=== PATIENT | male | born 1950 | race Caucasian/White ===

== ENCOUNTER 2017-09-09 10:19 | Inpatient (IN) | payer OTHER ==
[~2017-09-09] VITALS: Ht 185.4 cm; Wt 93.0 kg
[2017-09-09 11:27] LABS: BASOPHIL (%) 0.3 % (0-1); EOSINOPHIL (%) 2.4 % (0-5); EOSINOPHIL COUNT 0.3 K/uL (0-0.3); HEMOGLOBIN 12.9 G/DL (12.5-16.6); IMMATURE GRANULOCYTE (%) 0.5 % (0.0-0.7); LYMPHOCYTE COUNT 0.6 K/uL (1.0-2.8); MCH 29.9 PG (29.0-34.0); MCHC 33.9 G/DL (30.0-36.0); MCV 88.2 FL (86-99); MONOCYTE (%) 9.3 % (3-12); NEUTROPHIL (%) 81.5 % (45-76); NEUTROPHIL COUNT 8.7 K/uL (1.8-6.4); PLATELET COUNT 213 K/uL (156-360); RBC DIS.WIDTH-CV 13.8 % (11.8-14.6); RBC DIS.WIDTH-SD 44.5 % (39-53); RED BLOOD COUNT 4.31 M/uL (4.00-5.50); WHITE BLOOD COUNT 10.7 K/uL (4.1-10.2)
[2017-09-09 11:29] LABS: CHLORIDE 104 mEq/L (99-109); POTASSIUM 3.9 mEq/L (3.7-5.4); SODIUM 137 mEq/L (136-147)
[2017-09-09 11:31] LABS: GLUCOSE 84 mg/dL (70-99)
[2017-09-09 11:33] LABS: INTER. NORMALIZED RATIO 1.2
[2017-09-09 11:34] LABS: GFR ESTIMATE (CALCULATED) > 59 mL/min/ (58.99-99999)
[2017-09-09 11:35] LABS: UREA NITROGEN (BUN) 16 mg/dL (9-23)
[2017-09-09] MEDS ORDERED: SUCRALFATE1 GM PO (12:49)
[2017-09-09] MEDS ORDERED: LEVOTHYROXINE125 MCG PO (12:50)
[2017-09-09] MEDS ORDERED: MELOXICAM15 MG PO (12:50)
[2017-09-09] MEDS ORDERED: ESOMEPRAZOLE MA40 MG PO (12:50)
[2017-09-09] MEDS ORDERED: FLOMAX0.4 MG PO (12:51)
[2017-09-09] MEDS ORDERED: ROSUVASTATIN CAL5 MG PO (12:51)
[2017-09-09] MEDS ORDERED: COMBIVENT RESPIM4 GM IH (12:51)
[2017-09-09] MEDS ORDERED: METOPROLOL TART25 MG PO (12:52)
[2017-09-09] MEDS ORDERED: ALLEGRA ALLERG180 MG PO (12:52)
[2017-09-09] MEDS ORDERED: NATURAL BALANCE15 M1 BOTH EYES (12:52)
[2017-09-09] MEDS ORDERED: LO-DOSE ASPIRIN81 M2 PO (12:52)
[2017-09-09] MEDS ORDERED: DUONEB 2.5-0.5 M3 ML AEROSOL (12:56)
[2017-09-09 15:42] LABS: APPEARANCE CLEAR ((CLEAR)); BILIRUBIN NEGATIVE; BLOOD SMALL; COLOR YELLOW ((YELLOW)); GLUCOSE (STRIP) NEGATIVE; KETONES 5; LEUKOCYTES NEGATIVE; NITRITE NEGATIVE; PROTEIN (STRIP) NEGATIVE; SPECIFIC GRAVITY 1.015 (1.000-1.030); UROBILINOGEN 0.2 MG/DL (0.2-1.0)
[2017-09-09 15:56] LABS: BACTERIA NONE SEEN /HPF; EPITHELIAL CELLS NONE SEEN /HPF; MUCUS TRACE /LPF; UCUL ADDED? NO; WHITE BLOOD CELLS 0-5 /HPF (0-5)
[2017-09-09 20:26] VITALS: BP 110/76
[2017-09-10] VITALS (7 sets, daily range): BP systolic 103–137; BP diastolic 63–83
[2017-09-10 06:00] LABS: MCH 29.5 PG (29.0-34.0); MCHC 33.3 G/DL (30.0-36.0); MCV 88.6 FL (86-99); PLATELET COUNT 221 K/uL (156-360); RBC DIS.WIDTH-CV 14.1 % (11.8-14.6); RBC DIS.WIDTH-SD 45.6 % (39-53); WHITE BLOOD COUNT 16.1 K/uL (4.1-10.2)
[2017-09-10 06:07] LABS: INTER. NORMALIZED RATIO 1.3
[2017-09-10 06:25] LABS: ALBUMIN 3.1 G/DL (3.2-4.8); ALKALINE PHOSPHATASE 98 IU/L (3-129); ALT (GPT) 10 IU/L (3-49); AST (GOT) 10 IU/L (2-34); CHLORIDE 101 MEQ/L (99-109); CREATININE 0.9 MG/DL (0.6-1.3); GFR ESTIMATE (CALCULATED) > 59 mL/min/ (58.99-99999); GLUCOSE 125 mg/dL (70-99); POTASSIUM 4.4 MEQ/L (3.7-5.4); SODIUM 137 MEQ/L (136-147); TOTAL BILIRUBIN 0.3 MG/DL (0.0-1.0); TOTAL PROTEIN 6.2 G/DL (6.4-8.3); UREA NITROGEN (BUN) 21 mg/dL (9-23)
[2017-09-10 19:28] LABS: HEMATOCRIT 35.4 % (38.0-50.0); HEMOGLOBIN 11.7 G/DL (12.5-16.6); MCH 29.8 PG (29.0-34.0); MCHC 33.1 G/DL (30.0-36.0); MCV 90.3 FL (86-99); PLATELET COUNT 181 K/uL (156-360); RBC DIS.WIDTH-CV 14.3 % (11.8-14.6); RED BLOOD COUNT 3.92 M/uL (4.00-5.50); WHITE BLOOD COUNT 17.8 K/uL (4.1-10.2)
[2017-09-10 23:16] LABS: COMMENTS - BLOOD GASES C+A+; DEVICE CAM; FI02 75 %; O2 FLOW 15 L/MIN; SITE LR; TOTAL RESP RATE 20 resp/min
[2017-09-10 23:17] LABS: BASE EXCESS 1.3 mEq/L (-3 to +3); BICARBONATE 25.9 mEq/L (22-26); METHEMOGLOBIN 1.3 % (0-1.5); O2 SATURATION (CALCULATED) 95.2 % (95-99); PCO2 40 mm Hg (35-45); PO2 60 mm Hg (80-100); pH 7.42 (7.35-7.45)
[2017-09-10 23:52] LABS: BASOPHIL (%) 0.2 % (0-1); EOSINOPHIL (%) 0.4 % (0-5); EOSINOPHIL COUNT 0.1 K/uL (0-0.3); HEMATOCRIT 36.6 % (38.0-50.0); HEMOGLOBIN 12.2 G/DL (12.5-16.6); IMMATURE GRANULOCYTE (%) 0.6 % (0.0-0.7); LYMPHOCYTE (%) 3.9 % (15-42); LYMPHOCYTE COUNT 0.8 K/uL (1.0-2.8); MCH 29.5 PG (29.0-34.0); MCHC 33.3 G/DL (30.0-36.0); MCV 88.4 FL (86-99); MONOCYTE (%) 7.6 % (3-12); MONOCYTE COUNT 1.6 K/uL (0-0.8); NEUTROPHIL (%) 87.3 % (45-76); NEUTROPHIL COUNT 17.9 K/uL (1.8-6.4); PLATELET COUNT 202 K/uL (156-360); RBC DIS.WIDTH-CV 14.1 % (11.8-14.6); RBC DIS.WIDTH-SD 45.3 % (39-53); RED BLOOD COUNT 4.14 M/uL (4.00-5.50); WHITE BLOOD COUNT 20.5 K/uL (4.1-10.2)
[2017-09-11] VITALS (7 sets, daily range): BP systolic 90–176; BP diastolic 52–107
[2017-09-11 00:08] LABS: ALBUMIN 3.2 g/dL (3.2-4.8); CHLORIDE 104 mEq/L (99-109); POTASSIUM 4.5 mEq/L (3.7-5.4); SODIUM 138 mEq/L (136-147)
[2017-09-11 00:10] LABS: GLUCOSE 121 mg/dL (70-99)
[2017-09-11 00:11] LABS: TOTAL PROTEIN 6.3 g/dL (6.4-8.3)
[2017-09-11 00:13] LABS: TOTAL BILIRUBIN 0.5 mg/dL (0.0-1.0)
[2017-09-11 00:14] LABS: ALKALINE PHOSPHATASE 85 IU/L (3-129); GFR ESTIMATE (CALCULATED) > 59 mL/min/ (58.99-99999)
[2017-09-11 00:15] LABS: UREA NITROGEN (BUN) 20 mg/dL (9-23)
[2017-09-11 00:16] LABS: AST (GOT) 14 IU/L (2-34)
[2017-09-11 00:17] LABS: ALT (GPT) 15 IU/L (3-49)
[2017-09-11 00:26] LABS: TROP-I INTERPRETATION NEGATIVE; TROPONIN-I < 0.01 ng/mL (0.0-0.30)
[2017-09-11 06:09] LABS: HEMATOCRIT 35.3 % (38.0-50.0); HEMOGLOBIN 11.6 G/DL (12.5-16.6); MCH 29.4 PG (29.0-34.0); MCHC 32.9 G/DL (30.0-36.0); MCV 89.6 FL (86-99); PLATELET COUNT 161 K/uL (156-360); RBC DIS.WIDTH-CV 14.1 % (11.8-14.6); RBC DIS.WIDTH-SD 45.9 % (39-53); RED BLOOD COUNT 3.94 M/uL (4.00-5.50); WHITE BLOOD COUNT 16.3 K/uL (4.1-10.2)
[2017-09-11 06:26] LABS: TROP-I INTERPRETATION NEGATIVE; TROPONIN-I 0.02 ng/mL (0.0-0.30)
[2017-09-11 06:40] LABS: CHLORIDE 105 MEQ/L (99-109); CREATININE 0.8 MG/DL (0.6-1.3); GFR ESTIMATE (CALCULATED) > 59 mL/min/ (58.99-99999); GLUCOSE 125 mg/dL (70-99); MAGNESIUM 1.5 mg/dl (1.3-2.7); POTASSIUM 4.2 MEQ/L (3.7-5.4); SODIUM 137 MEQ/L (136-147); UREA NITROGEN (BUN) 18 mg/dL (9-23)
[2017-09-11 09:33] LABS: DEVICE HFNC; O2 FLOW 12 L/MIN; SITE RR; TOTAL RESP RATE 22 resp/min
[2017-09-11 09:34] LABS: PCO2 38 mm Hg (35-45); PO2 71 mm Hg (80-100); pH 7.42 (7.35-7.45)
[2017-09-11 09:35] LABS: BASE EXCESS 0.2 mEq/L (-3 to +3); BICARBONATE 24.6 mEq/L (22-26); CARBOXY HGB 1.2 % (0-5); METHEMOGLOBIN 1.3 % (0-1.5)
[2017-09-11 10:52] LABS: APPEARANCE CLEAR ((CLEAR)); BILIRUBIN NEGATIVE; BLOOD MODERATE; COLOR STRAW ((YELLOW)); GLUCOSE (STRIP) NEGATIVE; KETONES NEGATIVE; LEUKOCYTES NEGATIVE; NITRITE NEGATIVE; PROTEIN (STRIP) NEGATIVE; SPECIFIC GRAVITY 1.004 (1.000-1.030); UROBILINOGEN 0.2 MG/DL (0.2-1.0)
[2017-09-11 11:03] LABS: BACTERIA RARE /HPF; EPITHELIAL CELLS NONE SEEN /HPF; MUCUS TRACE /LPF; RED BLOOD CELLS 20-30 /HPF (0-5); UCUL ADDED? NO; WHITE BLOOD CELLS 0-5 /HPF (0-5)
[2017-09-11 13:12] LABS: TROP-I INTERPRETATION NEGATIVE; TROPONIN-I 0.03 ng/mL (0.0-0.30)
[2017-09-12 04:30] VITALS: BP 103/60
[2017-09-12 05:42] LABS: BASOPHIL (%) 0.1 % (0-1); EOSINOPHIL (%) 0 % (0-5); HEMATOCRIT 29.9 % (38.0-50.0); HEMOGLOBIN 10.1 G/DL (12.5-16.6); IMMATURE GRANULOCYTE (%) 0.7 % (0.0-0.7); LYMPHOCYTE (%) 2.5 % (15-42); LYMPHOCYTE COUNT 0.3 K/uL (1.0-2.8); MCH 29.4 PG (29.0-34.0); MCHC 33.8 G/DL (30.0-36.0); MCV 87.2 FL (86-99); MONOCYTE (%) 4.7 % (3-12); MONOCYTE COUNT 0.6 K/uL (0-0.8); NEUTROPHIL COUNT 11.7 K/uL (1.8-6.4); PLATELET COUNT 156 K/uL (156-360); RBC DIS.WIDTH-SD 44.8 % (39-53); RED BLOOD COUNT 3.43 M/uL (4.00-5.50); WHITE BLOOD COUNT 12.7 K/uL (4.1-10.2)
[2017-09-12 06:25] LABS: ALBUMIN 2.6 G/DL (3.2-4.8); ALT (GPT) 8 IU/L (3-49); AST (GOT) 11 IU/L (2-34); CHLORIDE 103 MEQ/L (99-109); CREATININE 0.8 MG/DL (0.6-1.3); GFR ESTIMATE (CALCULATED) > 59 mL/min/ (58.99-99999); GLUCOSE 125 mg/dL (70-99); POTASSIUM 3.7 MEQ/L (3.7-5.4); SODIUM 138 MEQ/L (136-147); TOTAL PROTEIN 5.3 G/DL (6.4-8.3); UREA NITROGEN (BUN) 23 mg/dL (9-23)
[2017-09-12 06:31] LABS: ALKALINE PHOSPHATASE 56 IU/L (3-129); TOTAL BILIRUBIN 0.4 MG/DL (0.0-1.0)
[2017-09-12 08:08] VITALS: BP 113/64
[2017-09-12 12:36] VITALS: BP 96/56
[2017-09-12 15:15] VITALS: BP 98/51
[2017-09-12 19:47] VITALS: BP 134/84; BP 89/52
[2017-09-12 23:15] VITALS: BP 101/64
[2017-09-13 03:30] VITALS: BP 100/65
[2017-09-13 05:50] LABS: BASOPHIL (%) 0.1 % (0-1); EOSINOPHIL (%) 0 % (0-5); HEMATOCRIT 30.6 % (38.0-50.0); HEMOGLOBIN 10.3 G/DL (12.5-16.6); IMMATURE GRANULOCYTE (%) 0.5 % (0.0-0.7); LYMPHOCYTE (%) 3.4 % (15-42); LYMPHOCYTE COUNT 0.5 K/uL (1.0-2.8); MCH 29.3 PG (29.0-34.0); MCHC 33.7 G/DL (30.0-36.0); MCV 86.9 FL (86-99); MONOCYTE COUNT 0.9 K/uL (0-0.8); PLATELET COUNT 191 K/uL (156-360); RBC DIS.WIDTH-CV 14.2 % (11.8-14.6); RBC DIS.WIDTH-SD 44.8 % (39-53); RED BLOOD COUNT 3.52 M/uL (4.00-5.50); WHITE BLOOD COUNT 15.5 K/uL (4.1-10.2)
[2017-09-13 06:22] LABS: CHLORIDE 101 MEQ/L (99-109); CREATININE 0.9 MG/DL (0.6-1.3); GFR ESTIMATE (CALCULATED) > 59 mL/min/ (58.99-99999); GLUCOSE 120 mg/dL (70-99); POTASSIUM 3.8 MEQ/L (3.7-5.4); SODIUM 137 MEQ/L (136-147)
[2017-09-13 06:26] LABS: UREA NITROGEN (BUN) 36 mg/dL (9-23)
[2017-09-13 07:58] VITALS: BP 100/65
[2017-09-13 11:06] LABS: TYPE OF FLUID PLEURAL
[2017-09-13 11:32] VITALS: BP 89/53
[2017-09-13 11:35] LABS: BODY FLUID GLUCOSE 154 MG/DL; BODY FLUID LDH 93 IU/L
[2017-09-13 11:36] LABS: BODY FLUID PROTEIN < 3.0 G/DL
[2017-09-13 12:59] LABS: APPEARANCE HAZY/YELLOW
[2017-09-13 13:02] LABS: BODY FLUID WBC'S ND /MM^3 (0-500)
[2017-09-13 13:33] LABS: BODY FLUID EOSINOPHILS ND % (0-25); MONONUCLEAR WBC'S ND %; POLYNUCLEAR WBC'S ND % (0-25)
[2017-09-13 16:27] VITALS: BP 91/60
[2017-09-13 19:55] VITALS: BP 97/60
[2017-09-13 23:45] VITALS: BP 112/71
[2017-09-14 04:45] VITALS: BP 134/85
[2017-09-14 05:18] LABS: BASOPHIL (%) 0.1 % (0-1); EOSINOPHIL (%) 0 % (0-5); HEMATOCRIT 33.5 % (38.0-50.0); HEMOGLOBIN 11.2 G/DL (12.5-16.6); IMMATURE GRANULOCYTE (%) 0.9 % (0.0-0.7); LYMPHOCYTE (%) 3.2 % (15-42); LYMPHOCYTE COUNT 0.4 K/uL (1.0-2.8); MCH 29.4 PG (29.0-34.0); MCHC 33.4 G/DL (30.0-36.0); MCV 87.9 FL (86-99); MONOCYTE (%) 4.8 % (3-12); MONOCYTE COUNT 0.7 K/uL (0-0.8); NEUTROPHIL COUNT 12.6 K/uL (1.8-6.4); PLATELET COUNT 215 K/uL (156-360); RBC DIS.WIDTH-SD 45.3 % (39-53); RED BLOOD COUNT 3.81 M/uL (4.00-5.50); WHITE BLOOD COUNT 13.9 K/uL (4.1-10.2)
[2017-09-14 06:08] LABS: ALBUMIN 2.9 G/DL (3.2-4.8); ALKALINE PHOSPHATASE 55 IU/L (3-129); AST (GOT) 11 IU/L (2-34); CHLORIDE 102 MEQ/L (99-109); CREATININE 0.8 MG/DL (0.6-1.3); GFR ESTIMATE (CALCULATED) > 59 mL/min/ (58.99-99999); GLUCOSE 114 mg/dL (70-99); POTASSIUM 4.2 MEQ/L (3.7-5.4); SODIUM 138 MEQ/L (136-147); TOTAL PROTEIN 5.6 G/DL (6.4-8.3); UREA NITROGEN (BUN) 31 mg/dL (9-23)
[2017-09-14 06:12] LABS: ALT (GPT) 18 IU/L (3-49); TOTAL BILIRUBIN 0.6 MG/DL (0.0-1.0)
[2017-09-14 07:36] VITALS: BP 135/78
[2017-09-14 11:38] VITALS: BP 138/88
[2017-09-14 15:20] VITALS: BP 123/84
[2017-09-14 23:21] VITALS: BP 146/74
[2017-09-15] VITALS (8 sets, daily range): BP systolic 107–158; BP diastolic 76–95
[2017-09-16 04:17] VITALS: BP 189/97
[2017-09-16 08:15] VITALS: BP 125/91
[2017-09-16 10:27] LABS: BASOPHIL (%) 0.1 % (0-1); EOSINOPHIL (%) 0.1 % (0-5); HEMATOCRIT 38.4 % (38.0-50.0); HEMOGLOBIN 12.6 G/DL (12.5-16.6); LYMPHOCYTE (%) 7.7 % (15-42); MCH 29.3 PG (29.0-34.0); MCHC 32.8 G/DL (30.0-36.0); MCV 89.3 FL (86-99); MONOCYTE (%) 9.5 % (3-12); MONOCYTE COUNT 1.3 K/uL (0-0.8); NEUTROPHIL (%) 81.6 % (45-76); NEUTROPHIL COUNT 10.9 K/uL (1.8-6.4); PLATELET COUNT 260 K/uL (156-360); RBC DIS.WIDTH-SD 45.2 % (39-53); WHITE BLOOD COUNT 13.4 K/uL (4.1-10.2)
[2017-09-16 11:02] LABS: CHLORIDE 100 MEQ/L (99-109); CREATININE 0.8 MG/DL (0.6-1.3); GFR ESTIMATE (CALCULATED) > 59 mL/min/ (58.99-99999); GLUCOSE 91 mg/dL (70-99); POTASSIUM 4.3 MEQ/L (3.7-5.4); SODIUM 139 MEQ/L (136-147); UREA NITROGEN (BUN) 29 mg/dL (9-23)
[2017-09-16 11:21] VITALS: BP 147/83
[2017-09-16 15:30] VITALS: BP 136/93
[2017-09-16 20:16] VITALS: BP 107/74
[2017-09-16 23:44] VITALS: BP 107/73
[2017-09-17] VITALS (7 sets, daily range): BP systolic 101–134; BP diastolic 70–78
[2017-09-18 03:02] VITALS: BP 135/85
[2017-09-18 07:58] VITALS: BP 116/76
[2017-09-18 11:31] VITALS: BP 133/83
[2017-09-18 14:43] LABS: BASOPHIL (%) 0.1 % (0-1); EOSINOPHIL (%) 0 % (0-5); HEMATOCRIT 35.6 % (38.0-50.0); HEMOGLOBIN 11.7 G/DL (12.5-16.6); IMMATURE GRANULOCYTE (%) 0.8 % (0.0-0.7); LYMPHOCYTE (%) 2.5 % (15-42); LYMPHOCYTE COUNT 0.4 K/uL (1.0-2.8); MCH 29.5 PG (29.0-34.0); MCHC 32.9 G/DL (30.0-36.0); MCV 89.9 FL (86-99); MONOCYTE (%) 3.8 % (3-12); MONOCYTE COUNT 0.6 K/uL (0-0.8); NEUTROPHIL (%) 92.8 % (45-76); NEUTROPHIL COUNT 15.1 K/uL (1.8-6.4); PLATELET COUNT 243 K/uL (156-360); RBC DIS.WIDTH-CV 14.7 % (11.8-14.6); RBC DIS.WIDTH-SD 46.4 % (39-53); RED BLOOD COUNT 3.96 M/uL (4.00-5.50); WHITE BLOOD COUNT 16.3 K/uL (4.1-10.2)
[2017-09-18 16:27] VITALS: BP 101/62
[2017-09-18 20:02] VITALS: BP 122/79
[2017-09-18 23:21] VITALS: BP 103/71
[2017-09-19 03:37] VITALS: BP 131/86
[2017-09-19 07:31] VITALS: BP 141/79
[2017-09-19 11:19] VITALS: BP 110/75
[2017-09-19 15:48] VITALS: BP 92/60
[2017-09-19 19:31] VITALS: BP 93/67
[2017-09-19 23:32] VITALS: BP 111/76
[2017-09-20 03:43] VITALS: BP 113/66
[2017-09-20 07:56] VITALS: BP 109/70
[2017-09-20 11:25] VITALS: BP 110/65
[2017-09-20 23:24] VITALS: BP 126/79
[2017-09-21 04:21] VITALS: BP 132/74
[2017-09-21 07:54] VITALS: BP 107/66
[2017-09-21 11:38] VITALS: BP 104/67
[2017-09-21 15:56] VITALS: BP 121/70
[2017-09-21 19:48] VITALS: BP 120/77
[2017-09-21 23:35] VITALS: BP 165/91
[2017-09-22 05:01] VITALS: BP 132/73
[2017-09-22 07:34] VITALS: BP 111/72
[2017-09-22 11:20] VITALS: BP 101/64
[2017-09-22 16:24] VITALS: BP 100/70
[2017-09-22] MEDS ORDERED: COMBIVENT RESPIM4 GM IH (16:33)
[2017-09-22] MEDS ORDERED: SPIRIVA RESPIMAT4 GM IH (16:33)
[2017-09-22] MEDS ORDERED: LOPRESSOR25 MG PO (16:34)
[2017-09-22] MEDS ORDERED: LOVENOX40 MG/0.4 SC (16:34)
[2017-09-22] MEDS ORDERED: DULERA 100 MCG/13 GM IH (16:35)
[2017-09-22] MEDS ORDERED: OXYCODONE HCL5 MG PO (16:36)
[2017-09-22] MEDS ORDERED: PREDNISONE10 MG PO (16:43)
== END 2017-09-22 19:40 | DRG 480 ==
LOC: EME 10:19 → EDOF 13:41 → 4EAST 13:41 → 3EAST 13:41 → ENRESERV 13:45 → 3EAST 19:30 → 4EAST 09-11 02:13 → ENRESERV 09-13 08:13 → CANRESERV 09-13 10:37 → ENRESERV 09-15 11:53 → 3EAST 09-15 12:41
PROVIDERS: Emergency Medicine; Hospitalist; Internal Medicine; Orthopaedic Surgery; Radiology Diagnostic Radiology
PROC: 0HQ0XZZ Repair Scalp Skin, External Approach (ICD-10-PCS; principal; 2017-09-09)
PROC: 0QS736Z Reposition Left Upper Femur with Intramedullary Internal Fixation Device, Percutaneous Approach (ICD-10-PCS; 2017-09-10)
PROC: 0W993ZZ Drainage of Right Pleural Cavity, Percutaneous Approach (ICD-10-PCS; 2017-09-12)
DX: S72.142A Displaced intertrochanteric fracture of left femur, initial encounter for closed fracture (principal); W18.30XA Fall on same level, unspecified, initial encounter; S01.01XA Laceration without foreign body of scalp, initial encounter; J81.1 Chronic pulmonary edema; J18.9 Pneumonia, unspecified organism; J44.1 Chronic obstructive pulmonary disease with (acute) exacerbation; J95.821 Acute postprocedural respiratory failure; F17.210 Nicotine dependence, cigarettes, uncomplicated; N40.1 Benign prostatic hyperplasia with lower urinary tract symptoms; J95.811 Postprocedural pneumothorax; C34.90 Malignant neoplasm of unspecified part of unspecified bronchus or lung; K21.9 Gastro-esophageal reflux disease without esophagitis; R41.0 Disorientation, unspecified; I25.10 Atherosclerotic heart disease of native coronary artery without angina pectoris; T38.0X5A Adverse effect of glucocorticoids and synthetic analogues, initial encounter; I10 Essential (primary) hypertension; E78.5 Hyperlipidemia, unspecified; E03.9 Hypothyroidism, unspecified; R32 Unspecified urinary incontinence; R00.0 Tachycardia, unspecified; R33.8 Other retention of urine; Z92.21 Personal history of antineoplastic chemotherapy; Z92.3 Personal history of irradiation; Z95.5 Presence of coronary angioplasty implant and graft; Z79.82 Long term (current) use of aspirin; Z99.3 Dependence on wheelchair; Z85.118 Personal history of other malignant neoplasm of bronchus and lung; G93.89 Other specified disorders of brain; R13.10 Dysphagia, unspecified; J91.8 Pleural effusion in other conditions classified elsewhere
CPT/HCPCS: 36600; 70450; 70551; 71045; 71250; 71275; 73502; 73552; 73560; 76000; 76942; 80048; 80053; 81003; 82945; 82948; 83605; 83615 91; 83735; 83880; 84145 90; 84157; 84484; 85014; 85018; 85025; 85027; 85379; 85610; 86850; 86900; 86901; 87040; 87070; 87077; 87116; 87205; 87206; 87449; 87801; 89051; 92526 GN; 92610 GN; 93005; 94640; 94669; 94760; 94799; 99281; 99285; C1713; C1769; J0295; J0456; J0690; J0692; J0696; J1100; J1170; J1200; J1650; J1885; J1940; J2250; J2270; J2405; J2710; J2920; J2930; J3010; J3475; J7030; J7042; J7050; J7512; J7643